=== PATIENT | female | born 1960 | race Caucasian/White ===

== ENCOUNTER 2017-10-01 07:31 | Day surgery (SDC) | payer OTHER ==
[~2017-10-01] VITALS: Ht 162.6 cm; Wt 81.8 kg
[~2017-10-01 07:31] MED LIST: CYTOTEC200 MCG PO; PATADAY2.5 ML BOTH EYES; RESTASIS MULTI5.5 ML BOTH EYES
[2017-10-01 07:53] VITALS: BP 173/80
[2017-10-01 11:05] VITALS: BP 136/63
[2017-10-01 12:08] VITALS: BP 128/73
== END 2017-10-01 12:15 | disposition home or self-care (01) ==
LOC: SDC 07:31
DX: N95.0 Postmenopausal bleeding (principal); N81.12 Cystocele, lateral; N88.2 Stricture and stenosis of cervix uteri; R93.8 Abnormal findings on diagnostic imaging of other specified body structures; Z87.891 Personal history of nicotine dependence; Z88.0 Allergy status to penicillin; Z88.2 Allergy status to sulfonamides; E66.09 Other obesity due to excess calories; Z68.30 Body mass index [BMI] 30.0-30.9, adult
CPT/HCPCS: 88305; J0131; J0690; J1100; J2250; J2405; J7643